=== PATIENT | male | born 1955 | race Caucasian/White ===

== ENCOUNTER → 2018-02-28 | Outpatient (CLI) | payer BC ==
--- NOTE | 2018-02-28 17:01 | XCELERA REPORT ---
[address] [facility] [address] Lower Extremity Venous Evaluation Procedure: Color flow and duplex imaging bilaterally of the veins of the lower extremities as well as the Common Femoral veins. Right Sided Venous Evaluation Normal vessel filling wall to wall, compression and augmentation as well as Colour flow down to the infrageniculate veins. Left Sided Venous Evaluation Normal vessel filling wall to wall, compression and augmentation as well as Colour flow down to the infrageniculate veins. Interpretation Summary No duplex evidence of DVT or obstruction in the bilateral lower extremities. Name: CHILO RODRÍGUEZ Age: 62 yrs Gender: Male : 1955 Patient Status: Preadmit Patient Location: Study Date: 02/28/2018 10:10 AM Reason For Study: ENLARGED VARICOSE VEINS Ordering Physician: JONE NAVARRETE Performed By: Adeel Ferrell : JONE NAVARRETE > Faraz Sagastume
== END ==
LOC: SP 13:11
PROVIDERS: ATTEND Student in an Organized Health Care Education/Training Program
DX: I83.93 Asymptomatic varicose veins of bilateral lower extremities (principal)
CPT/HCPCS: 93970